=== PATIENT | female | born 1995 | race African-American/Black ===

== ENCOUNTER 2017-05-24 23:37 | Emergency (ER) | payer OTHER ==
[~2017-05-24] VITALS: Ht 157.5 cm; Wt 67.0 kg
[2017-05-24 23:55] VITALS: BP 114/76
== END 2017-05-25 02:58 | disposition left against medical advice (07) ==
LOC: ER 23:38
DX: Z04.3 Encounter for examination and observation following other accident (principal); M25.532 Pain in left wrist; Z53.21 Procedure and treatment not carried out due to patient leaving prior to being seen by health care provider